=== PATIENT | female | born 1955 | race African-American/Black ===

== ENCOUNTER 2017-08-22 12:02 | Inpatient (IN) | payer OTHER ==
[~2017-08-22] VITALS: Ht 170.2 cm; Wt 103.4 kg
[~2017-08-22 12:02] MED LIST: ADVIL200 M3 PO; ALEVE220 MG PO; BENTYL 20 MG TA20 M1 PO; CATAPRES0.1 MG PO; DOXYCYCLINE 10100 MG PO; HUMALOG MI100 UNIT/1 SUBQ; IBUPROFEN 600600 M1 PO; MEDROL4 MG PO; NAPROSYN500 MG PO; NOHOMEMEDICATIONS; NORCO 5-325 TA1 EACH PO; NORFLEX100 MG PO; ONDANSETRON HCL4 M2 PO; OXYCODONE HCL 55 MG PO; OXYCODONE-ACET1 EACH PO; PRILOSEC40 MG PO; VALIUM2 MG PO; XANAX 0.5 MG0.5 MG PO; ZOFRAN ODT4 MG PO
[2017-08-22 12:10] VITALS: BP 193/111
[2017-08-22 12:58] LABS: URINE BILIRUBIN NEGATIVE (Negative); URINE BLOOD NEGATIVE (Negative); URINE CLARITY CLEAR; URINE COLOR YELLOW; URINE GLUCOSE-RANDOM* TRACE (Negative); URINE KETONES NEGATIVE (Negative); URINE LEUKOCYTES-REFLEX NEGATIVE (Negative); URINE NITRITE-REFLEX NEGATIVE (Negative); URINE PROTEIN (DIPSTICK) TRACE (Negative); URINE SPECIFIC GRAVITY >= 1.030 (1.005-1.035)
[2017-08-22 13:08] LABS: ABSOLUTE NEUTROPHILS 6.4 thou/uL (1.4-8.2); BASOPHILS 0.7 % (0.0-2.0); EOSINOPHILS 0.4 % (0.0-3.0); HEMATOCRIT 37.2 % (37.0-47.0); HEMOGLOBIN 12.2 gm/dL (12.0-15.0); LYMPHOCYTES 16.9 % (24.0-44.0); MCH 29.3 pg (26.0-34.0); MCHC 32.7 g/dL (28.0-37.0); MCV 89.6 fL (80.0-100.0); MONOCYTES 5.3 % (1.0-8.0); PLATELET COUNT 199 thou/uL (150-400); POLYS 76.7 % (36.0-66.0); RBC 4.16 mil/uL (4.20-5.00); RDW 14.2 % (10.5-14.5); WBC 8.4 thou/uL (4.0-11.0)
[2017-08-22 13:11] LABS: CALCIUM 9.4 mg/dL (8.5-10.1); POTASSIUM 4.5 mmol/L (3.5-5.1)
[2017-08-22 13:18] LABS: DIRECT BILIRUBIN 0.2 mg/dL (<0.1-0.3); MAGNESIUM 1.9 mg/dL (1.8-2.4); TOTAL BILIRUBIN 1.3 mg/dL (<0.1-1.0); TOTAL PROTEIN 8.6 g/dL (6.4-8.2)
[2017-08-22 15:26] VITALS: BP 197/104
[2017-08-22] MEDS ORDERED: NOVOLOG100 UNIT/1 SUBQ (15:38)
[2017-08-22 15:48] VITALS: BP 171/121
[2017-08-22 16:25] VITALS: BP 147/90
[2017-08-22 19:30] VITALS: BP 174/104
[2017-08-22] MEDS ORDERED: HUMALOG MI100 UNIT/1 SUBQ (22:09)
[2017-08-23 02:21] VITALS: BP 138/86
[2017-08-23 04:30] VITALS: BP 126/81
[2017-08-23 08:00] VITALS: BP 141/83
[2017-08-23 09:30] VITALS: BP 126/81
[2017-08-23 16:37] VITALS: BP 126/81
== END 2017-08-23 17:16 | disposition home or self-care (01) | DRG 392 ==
LOC: ER 12:02 → EROBS 15:10 → 4E 15:10 → ENTRNSPT 08-23 17:00 → 4E 08-23 17:16
PROVIDERS: Emergency Medicine
DX: R10.9 Unspecified abdominal pain (principal); E11.9 Type 2 diabetes mellitus without complications; K59.00 Constipation, unspecified; D25.9 Leiomyoma of uterus, unspecified; Z85.07 Personal history of malignant neoplasm of pancreas; Z98.891 History of uterine scar from previous surgery; Z90.49 Acquired absence of other specified parts of digestive tract; Z87.891 Personal history of nicotine dependence; Z85.118 Personal history of other malignant neoplasm of bronchus and lung; Z85.05 Personal history of malignant neoplasm of liver; Z79.899 Other long term (current) drug therapy
CPT/HCPCS: 10783

== ENCOUNTER 2017-12-23 05:34 | Emergency (ER) | payer OTHER ==
[~2017-12-23] VITALS: Ht 167.6 cm; Wt 104.8 kg
--- NOTE | ~2017-12-23 | EKG ---
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 : 1955 Requested By: Harlan Foote Order Number: [id number] MD: Edu Modi Measurements Intervals [place] Rate: 99 P: 41 [place]: 178 QRS: 4 QRSD: 87 T: -7 QT: 368 QTc: 473 Interpretive Statements Sinus rhythm Anteroseptal infarct, old Possible inferior infarct Baseline wander in lead(s) V6 Compared to ECG 11/11/2013 06:21:17 Anteroseptal and inferior Q waves are more prominent Electronically Signed On 12-23-2017 8:14:46 CDT by Edu Modi [email or web address] <ELECTRONICALLY SIGNED> By: Edu Modi MD, [facility] 12/23/17 0814 0651 0651 Edu Modi MD, [facility] /EPI
[~2017-12-23 05:34] MED LIST changes: +NOVOLOG100 UNIT/1 SUBQ
[2017-12-23] MEDS ORDERED: ORPHENADRINE C100 M2 (06:00)
[2017-12-23] MEDS ORDERED: OCTREOTIDE100 MCG/2 (06:01)
[2017-12-23] MEDS ORDERED: XGEVA120 MG/1.7 (06:02)
[2017-12-23 06:28] LABS: ABSOLUTE NEUTROPHILS 4.7 thou/uL (1.4-8.2); BASOPHILS 0.3 % (0.0-2.0); EOSINOPHILS 1.3 % (0.0-3.0); HEMATOCRIT 36.2 % (37.0-47.0); HEMOGLOBIN 12.2 gm/dL (12.0-15.0); LYMPHOCYTES 25.4 % (24.0-44.0); MCH 29.9 pg (26.0-34.0); MCHC 33.5 g/dL (28.0-37.0); MONOCYTES 9.7 % (1.0-8.0); PLATELET COUNT 222 thou/uL (150-400); POLYS 63.3 % (36.0-66.0); RBC 4.07 mil/uL (4.20-5.00); RDW 13.7 % (10.5-14.5); WBC 7.4 thou/uL (4.0-11.0)
[2017-12-23 06:28] LABS: URINE BILIRUBIN NEGATIVE (Negative); URINE BLOOD NEGATIVE (Negative); URINE CLARITY CLEAR; URINE COLOR YELLOW; URINE GLUCOSE-RANDOM* NEGATIVE (Negative); URINE KETONES NEGATIVE (Negative); URINE LEUKOCYTES-REFLEX NEGATIVE (Negative); URINE NITRITE-REFLEX NEGATIVE (Negative); URINE PROTEIN (DIPSTICK) NEGATIVE (Negative); URINE SPECIFIC GRAVITY 1.025 (1.005-1.035); URINE UROBILINOGEN 0.2 E.U./dl (0.2-1.0)
[2017-12-23 06:32] LABS: ANION GAP 11 mmol/L (7-16); BUN 9 mg/dL (7-18); CHLORIDE 102 mmol/L (98-107); CO2 22 mmol/L (21-32); GLUCOSE 226 mg/dL (74-106); POTASSIUM 3.6 mmol/L (3.5-5.1); SODIUM 135 mmol/L (136-145)
[2017-12-23 06:41] LABS: ALBUMIN 3.8 g/dL (3.4-5.0); LIPASE 161 U/L (73-393); SGOT 26 U/L (15-37); SGPT 36 U/L (30-65); TOTAL PROTEIN 8.3 g/dL (6.4-8.2); TROPONIN-I <0.06 ng/mL (<0.06)
== END 2017-12-23 08:16 | disposition home or self-care (01) ==
LOC: ER 05:34
PROVIDERS: Emergency Medicine
DX: K59.00 Constipation, unspecified (principal); I10 Essential (primary) hypertension; Z87.19 Personal history of other diseases of the digestive system; Z90.49 Acquired absence of other specified parts of digestive tract; Z85.07 Personal history of malignant neoplasm of pancreas; Z87.891 Personal history of nicotine dependence

== ENCOUNTER 2018-03-27 08:38 | Emergency (ER) | payer OTHER ==
[~2018-03-27] VITALS: Ht 167.6 cm; Wt 95.3 kg
[~2018-03-27 08:38] MED LIST changes: +OCTREOTIDE100 MCG/2; +ORPHENADRINE C100 M2; +XGEVA120 MG/1.7
[2018-03-27] MEDS ORDERED: NOVOLOG FL100 UNIT/M SUBQ (08:55)
[2018-03-27 09:14] LABS: ABSOLUTE NEUTROPHILS 7.1 thou/uL (1.4-8.2); BASOPHILS 0.8 % (0.0-2.0); EOSINOPHILS 0.2 % (0.0-3.0); HEMATOCRIT 35.9 % (37.0-47.0); HEMOGLOBIN 11.8 gm/dL (12.0-15.0); LYMPHOCYTES 15.6 % (24.0-44.0); MCH 28.7 pg (26.0-34.0); MCHC 32.9 g/dL (28.0-37.0); MCV 87.3 fL (80.0-100.0); MONOCYTES 3.9 % (1.0-8.0); PLATELET COUNT 233 thou/uL (150-400); POLYS 79.5 % (36.0-66.0); RBC 4.11 mil/uL (4.20-5.00); RDW 13.8 % (10.5-14.5); WBC 8.9 thou/uL (4.0-11.0)
[2018-03-27 09:17] LABS: URINE BILIRUBIN NEGATIVE (Negative); URINE BLOOD NEGATIVE (Negative); URINE CLARITY CLEAR; URINE COLOR YELLOW; URINE GLUCOSE-RANDOM* TRACE (Negative); URINE KETONES NEGATIVE (Negative); URINE LEUKOCYTES NEGATIVE (Negative); URINE NITRITE NEGATIVE (Negative); URINE PROTEIN (DIPSTICK) TRACE (Negative)
[2018-03-27 09:19] LABS: CALCIUM 9.1 mg/dL (8.5-10.1); CREATININE 1.2 mg/dL (0.6-1.0); POTASSIUM 4.4 mmol/L (3.5-5.1)
[2018-03-27 09:32] LABS: ALBUMIN 3.9 g/dL (3.4-5.0); TOTAL BILIRUBIN 0.9 mg/dL (<0.1-1.0); TOTAL PROTEIN 8.6 g/dL (6.4-8.2)
[2018-03-27] MEDS ORDERED: NORCO 5-325 TA1 EACH PO (11:56)
[2018-03-27] MEDS ORDERED: NAPROSYN500 MG PO (11:56)
[2018-03-27] MEDS ORDERED: CLONIDINE0.1 PO (11:56)
[2018-03-27 12:26] VITALS: BP 163/100
--- NOTE | 2018-03-27 22:03 | EKG ---
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: natalie : 1955 Requested By: Harlan Foote Order Number: [id number] MD: Moreno Ponce Measurements Intervals [place] Rate: 96 P: 48 [place]: 190 QRS: 19 QRSD: 90 T: -5 QT: 358 QTc: 453 Interpretive Statements Sinus rhythm Left atrial enlargement Anteroseptal infarct, old Compared to ECG 12/23/2017 06:51:13 Atrial abnormality now present Myocardial infarct finding still present Electronically Signed On 03-27-2018 22:02:46 [employer] by Moreno Ponce [email or web address] <ELECTRONICALLY SIGNED> By: Moreno Ponce MD 03/27/182 4 4 Moreno Ponce MD /NANO
== END 2018-03-27 12:27 | disposition home or self-care (01) ==
LOC: ER 08:38
PROVIDERS: Emergency Medicine
DX: C78.6 Secondary malignant neoplasm of retroperitoneum and peritoneum (principal); I10 Essential (primary) hypertension; E11.65 Type 2 diabetes mellitus with hyperglycemia; Z90.49 Acquired absence of other specified parts of digestive tract; Z98.890 Other specified postprocedural states; Z87.891 Personal history of nicotine dependence

== ENCOUNTER 2018-06-18 02:10 | Emergency (ER) | payer OTHER ==
[~2018-06-18] VITALS: Ht 167.6 cm; Wt 93.0 kg
[~2018-06-18 02:10] MED LIST changes: +CLONIDINE0.1 PO; +NOVOLOG FL100 UNIT/M SUBQ
[2018-06-18 02:11] VITALS: BP 180/124
[2018-06-18] MEDS ORDERED: AMITIZA 24 MCG24 MC1 PO (02:34)
[2018-06-18 05:05] LABS: ABSOLUTE NEUTROPHILS 8.1 thou/uL (1.4-8.2); BASOPHILS 0.1 % (0.0-2.0); EOSINOPHILS 0.6 % (0.0-3.0); HEMATOCRIT 32.9 % (37.0-47.0); HEMOGLOBIN 10.9 gm/dL (12.0-15.0); LYMPHOCYTES 4.2 % (24.0-44.0); MCH 28.9 pg (26.0-34.0); MCHC 33.1 g/dL (28.0-37.0); MCV 87.2 fL (80.0-100.0); MONOCYTES 1.2 % (1.0-8.0); PLATELET COUNT 184 thou/uL (150-400); POLYS 93.9 % (36.0-66.0); RBC 3.78 mil/uL (4.20-5.00); RDW 14.7 % (10.5-14.5); WBC 8.6 thou/uL (4.0-11.0)
[2018-06-18 05:28] LABS: ANION GAP 12 mmol/L (7-16); BUN 12 mg/dL (7-18); CALCIUM 9.3 mg/dL (8.5-10.1); CHLORIDE 103 mmol/L (98-107); CO2 21 mmol/L (21-32); CREATININE 1.1 mg/dL (0.6-1.0); GLUCOSE 186 mg/dL (74-106); SODIUM 136 mmol/L (136-145)
[2018-06-18 05:29] LABS: POTASSIUM 4.2 mmol/L (3.5-5.1)
[2018-06-18 05:36] LABS: TROPONIN-I <0.06 ng/mL (<0.06)
[2018-06-18 06:41] LABS: ALBUMIN 3.5 g/dL (3.4-5.0); DIRECT BILIRUBIN 0.1 mg/dL (<0.1-0.3); TOTAL BILIRUBIN 0.7 mg/dL (<0.1-1.0)
[2018-06-18 08:35] VITALS: BP 164/102
[2018-06-18 09:56] VITALS: BP 162/93
[2018-06-18 10:00] VITALS: BP 162/93
--- NOTE | 2018-06-18 10:29 | EKG ---
[place] [address] [facility] [place] [address] ELECTROCARDIOGRAM REPORT Name: TRES SIERRA Room #: 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 : 1955 Requested By: Curtis Almaraz Order Number: [id number] MD: Edu Modi Measurements Intervals [place] Rate: 123 P: 39 MD: 155 QRS: 12 QRSD: 88 T: -23 QT: 307 QTc: 439 Interpretive Statements Sinus tachycardia Nonspecific ST and T wave abnormality Compared to ECG 03/27/2018 09:25:35 Nonspecific change in the ST and T-wave segments Electronically Signed On 06-18-2018 10:28:53 CDT by Edu Modi [email or web address] ��������������������������������������������� <ELECTRONICALLY SIGNED> ���������������������������������������� By: Edu Modi MD, [facility] ��������������������������������������������� 06/18/18 1028 2 2 Edu Modi MD, [facility] /EPI
== END 2018-06-18 10:01 | disposition home or self-care (01) ==
LOC: ER 02:10 → EROBS 07:44 → ER 07:44
PROVIDERS: Emergency Medicine
DX: I10 Essential (primary) hypertension (principal); M43.6 Torticollis; R79.1 Abnormal coagulation profile; D61.818 Other pancytopenia; R00.0 Tachycardia, unspecified; E11.9 Type 2 diabetes mellitus without complications; Z85.89 Personal history of malignant neoplasm of other organs and systems; Z98.890 Other specified postprocedural states; Z90.49 Acquired absence of other specified parts of digestive tract; Z85.07 Personal history of malignant neoplasm of pancreas; Z79.4 Long term (current) use of insulin; Z87.891 Personal history of nicotine dependence

== ENCOUNTER 2019-01-03 01:03 | Emergency (ER) | payer OTHER ==
[~2019-01-03] VITALS: Ht 170.2 cm; Wt 88.5 kg
[~2019-01-03 01:03] MED LIST changes: +AMITIZA 24 MCG24 MC1 PO
[2019-01-03 01:48] LABS: HEMATOCRIT 40.4 % (37.0-47.0); HEMOGLOBIN 13.2 gm/dL (12.0-15.0); MCH 28.6 pg (26.0-34.0); MCHC 32.7 g/dL (28.0-37.0); MCV 87.4 fL (80.0-100.0); PLATELET COUNT 237 thou/uL (150-400); RBC 4.63 mil/uL (4.20-5.00); RDW 17.3 % (10.5-14.5); WBC 9.6 thou/uL (4.0-11.0)
[2019-01-03 01:48] LABS: URINE BILIRUBIN NEGATIVE (Negative); URINE BLOOD NEGATIVE (Negative); URINE CLARITY CLEAR; URINE COLOR YELLOW; URINE GLUCOSE-RANDOM* NEGATIVE (Negative); URINE KETONES TRACE (Negative); URINE LEUKOCYTES-REFLEX NEGATIVE (Negative); URINE NITRITE-REFLEX NEGATIVE (Negative); URINE PROTEIN (DIPSTICK) NEGATIVE (Negative)
[2019-01-03 02:28] LABS: ALBUMIN 3.8 g/dL (3.4-5.0); ANION GAP 13 mmol/L (7-16); BUN 10 mg/dL (7-18); CALCIUM 8.9 mg/dL (8.5-10.1); CHLORIDE 99 mmol/L (98-107); CO2 24 mmol/L (21-32); GLUCOSE 113 mg/dL (74-106); LIPASE 75 U/L (73-393); POTASSIUM 3.8 mmol/L (3.5-5.1); SGOT 17 U/L (15-37); SGPT 12 U/L (30-65); SODIUM 136 mmol/L (136-145); TOTAL PROTEIN 8.3 g/dL (6.4-8.2); TROPONIN-I <0.06 ng/mL (<0.06)
[2019-01-03 02:30] LABS: ABSOLUTE NEUTROPHILS 7.8 thou/uL (1.4-8.2)
[2019-01-03 02:32] LABS: ANISOCYTOSIS 1+; PLATELET ESTIMATE NORMAL; POIKILOCYTOSIS 1+; SCHISTOCYTES 1+
[2019-01-03 05:44] VITALS: BP 180/124
--- NOTE | 2019-01-03 08:06 | EKG ---
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 01/03/19 0806 D: 10421 1 Edu Modi MD, [facility] /EPI
== END 2019-01-03 05:48 | disposition home or self-care (01) ==
LOC: ER 01:03
PROVIDERS: Emergency Medicine
DX: R10.11 Right upper quadrant pain (principal); I10 Essential (primary) hypertension; E11.9 Type 2 diabetes mellitus without complications; Z90.49 Acquired absence of other specified parts of digestive tract; Z98.890 Other specified postprocedural states; Z85.07 Personal history of malignant neoplasm of pancreas; Z87.891 Personal history of nicotine dependence

== ENCOUNTER 2020-12-22 08:31 | Inpatient (IN) | payer OTHER ==
[~2020-12-22] VITALS: Ht 167.6 cm; Wt 67.1 kg
--- NOTE | ~2020-12-22 | EEG ---
[facility] [place] [address] ELECTROENCEPHALOGRAM Name: TRES SIERRA Room #: 458-P [facility] IN M.R.#: [id number] Admission: 12/22/20 Attend Phys: Simone Howell MD Discharge: Date of : 57 Report #: [id number] THIS REPORT FOR: //name// DATE OF SERVICE: 12/23/2020 This patient is being evaluated for the possibility of seizure. EEG was done by placing the electrode by standard 10-20 system of electrode placement. Both referential and sequential montages were used for recording. Background activity in this patient's EEG is about 8 Hz and 40 microvolt. The patient went to sleep that is associated with bilateral slowing and vertex sharp waves. Photic stimulation is unremarkable. Throughout the record, no active epileptiform activity was noticed. IMPRESSION: This patient's EEG is somewhat slow. This is a nonspecific finding, but was otherwise unremarkable. Thank you very much for this referral. By: 1600 1622 Giuseppe Natarajan MD /nt
[2020-12-22 08:35] VITALS: BP 118/98
[2020-12-22 09:34] LABS: ABSOLUTE NEUTROPHILS 4.5 thou/uL (1.4-8.2); BASOPHILS 0.5 % (0.0-2.0); EOSINOPHILS 0.4 % (0.0-3.0); HEMATOCRIT 34.8 % (37.0-47.0); HEMOGLOBIN 11.6 gm/dL (12.0-15.0); LYMPHOCYTES 6.5 % (24.0-44.0); MCH 32.3 pg (26.0-34.0); MCHC 33.2 g/dL (28.0-37.0); MCV 97.4 fL (80.0-100.0); MONOCYTES 6.3 % (1.0-8.0); PLATELET COUNT 156 thou/uL (150-400); POLYS 86.3 % (36.0-66.0); RBC 3.58 mil/uL (4.20-5.00); RDW 15.2 % (10.5-14.5); WBC 5.2 thou/uL (4.0-11.0)
[2020-12-22 09:37] LABS: CALCIUM 9.4 mg/dL (8.5-10.1); CREATININE 1.2 mg/dL (0.6-1.0); POTASSIUM 3.4 mmol/L (3.5-5.1)
--- NOTE | 2020-12-22 09:39 | EKG ---
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 : 1955 Requested By: Lewis Barbour Order Number: [id number] MD: Edu Modi Measurements Intervals [place] Rate: 108 P: 77 [place]: 171 QRS: 20 QRSD: 99 T: -12 QT: 334 QTc: 448 Interpretive Statements Sinus tachycardia Atrial premature complex Consider right atrial enlargement Borderline T abnormalities, lateral leads Compared to ECG 01/03/2019 04:22:52 Atrial premature complex(es) now present T-wave abnormality still present Electronically Signed On 12-22-2020 9:39:24 CDT by Edu Modi [email or web address] <ELECTRONICALLY SIGNED> By: Edu Modi MD, [facility] 12/22/20 0939 9 9 Edu Modi MD, [facility] /EPI
[2020-12-22 09:47] LABS: TOTAL BILIRUBIN 0.9 mg/dL (0.2-1.0); TOTAL PROTEIN 8.7 g/dL (6.4-8.2)
[2020-12-22 09:51] LABS: URINE BILIRUBIN NEGATIVE (Negative); URINE BLOOD NEGATIVE (Negative); URINE CLARITY CLEAR; URINE COLOR YELLOW; URINE GLUCOSE-RANDOM* NEGATIVE (Negative); URINE KETONES TRACE (Negative); URINE LEUKOCYTES-REFLEX NEGATIVE (Negative); URINE NITRITE-REFLEX NEGATIVE (Negative); URINE PROTEIN (DIPSTICK) TRACE (Negative)
[2020-12-22 12:45] VITALS: BP 174/92
[2020-12-22 14:24] LABS: CHOLESTEROL 133 mg/dL (<200); HDL CHOLESTEROL 61 mg/dL (>40); LDL CHOLESTEROL 52 mg/dL (<100); TC:HDL 2.2 Ratio (Not establshd); TRIGLYCERIDE 103 mg/dL (<150); VLDL 21 mg/dL (<40)
[2020-12-22 14:43] LABS: SERUM ASSESSMENT Clear
[2020-12-22 15:17] LABS: FOLIC ACID 36.5 ng/mL (8.6-58.9)
[2020-12-22] MEDS ORDERED: ORPHENADRINE C100 M2 PO (18:35)
[2020-12-22] MEDS ORDERED: CAPECITABINE150 MG PO (18:36)
[2020-12-22] MEDS ORDERED: AMITIZA 24 MCG24 MC1 PO (18:36)
[2020-12-22 20:24] LABS: APTT 25.8 Seconds (24.5-32.8); INR 1.05; PROTIME 11.4 Seconds (10.5-12.1)
[2020-12-22 22:19] VITALS: BP 131/75
[2020-12-22 22:44] VITALS: BP 170/98
[2020-12-22 22:56] VITALS: BP 184/108
--- NOTE | 2020-12-23 00:40 | NUR ---
PT ARRIVED IN THE UNIT AT 2256 FROM ED, WITH REPORTED WEAKNESS, ALERT AND ORIENTED X4, LOW BLOOD SUGAR NOTED, PROTOCOL INITIATED, ORIENTED TO ROOM, ADMISSION PACKAGE PRESENTED, REPORTS DISCOMFORT AND PAIN FROM RUQ RADIATING TO THE BACK, PAIN MEDICATION DUE IN AN HOUR, DECLINED TYELENOL, SKIN, DRY AND INTACT ASSIST X1, REPORTS NO URGE TO USE THE RESTROOM, CONTINENT OF B & B, ICED WATER ON THE BEDSIDE TABLE, LUNCH BOX AND APPLE JUICE SERVED. PT COMFORTABLY LYING IN BED, TV ON, REPORTS FEELING SLEEPY, ACTIVE BOWEL SOUNDS X4, IV ON THE RIGHT HAND, FAIR MUSCLE STRENGTH, PERRLA, ABLE TO SIGN CONSENTS WILL CONTINUE TO MONITOR.
[2020-12-23 05:01] VITALS: BP 155/105
[2020-12-23 05:20] LABS: HEMATOCRIT 28.4 % (37.0-47.0); MCH 31.9 pg (26.0-34.0); MCV 96.8 fL (80.0-100.0); RBC 2.94 mil/uL (4.20-5.00); RDW 15.1 % (10.5-14.5)
[2020-12-23 05:22] LABS: HEMOGLOBIN 9.4 gm/dL (12.0-15.0)
[2020-12-23 05:48] LABS: CALCIUM 8.6 mg/dL (8.5-10.1); CREATININE 0.8 mg/dL (0.6-1.0); POTASSIUM 3.2 mmol/L (3.5-5.1)
[2020-12-23 08:58] VITALS: BP 145/102
--- NOTE | 2020-12-23 10:14 | 2DMMODE ---
[facility] [place] [address] 2 D/M-MODE ECHOCARDIOGRAM Name: TRES SIERRA Room #: 458-P [facility] M.R.#: [id number] Admission: 12/22/20 Attend Phys: Simone Howell MD Discharge: Date of : 57 Report #: [id number] THIS REPORT FOR: cc: Eladio Arteaga James A. DO Santiago, Patrick MD [facility] ~ APPROVED REPORT Study performed: 12/23/2020 09:29:49 EXAM: Comprehensive 2D, Doppler, and color-flow Echocardiogram Patient Location: Bedside Room #: [facility] Status: routine BSA: 1.76 HR: 79 bpm BP: 155/105 mmHg Indications TIA vs Seizure. Echo Enhancing Agent Indication: Rule out Shunt Agent(s) / Amount(s) Used: Agitated Saline 7 cc 2D Dimensions RVDd: 33.30 mm IVSd: 16.99 (7-11mm) LVOT Diam: 20.14 (18-24mm) LVDd: 36.44 mm PWd: 11.35 (7-11mm) Ascending Ao: 36.26 (22-36mm) LVDs: 19.64 (25-40mm) Left Atrium: 35.29 (27-40mm) Aortic Root: 33.36 mm Volumes Left Atrial Volume (Systole) Single Plane 4CH: 35.65 mL Single Plane 2CH: 49.95 mL LA ESV Index: 26.00 mL/m2 Aortic Valve AoV Peak Jimmy.: 1.56 m/s AO Peak Gr.: 9.73 mmHg LVOT Max P.59 mmHg LVOT Max V: 1.18 m/s JUAN Vmax: 2.41 cm2 [facility] [place] [address] 2 D/M-MODE ECHOCARDIOGRAM Name: TRES SIERRA Room #: 458-[facility]#: [id number] Admission: 12/22/20 Attend Phys: Simone Howell MD Discharge: Date of : 57 Report #: [id number] Mitral Valve E/A Ratio: 0.5 MV Decel. Time: 219.64 ms MV E Max Jimmy.: 0.51 m/s MV A Jimmy.: 0.96 m/s MV PHT: 63.69 ms IVRT: 128.03 ms Pulmonary Valve PV Peak Jimmy.: 1.23 m/s PV Peak Gr.: 6.07 mmHg Pulmonary Vein P Vein S: 0.58 m/s P Vein D: 0.50 m/s P Vein S/D Ratio: 1.16 Tricuspid Valve RAP Estimate: 5.00 mmHg Left Ventricle The left ventricle is normal size. There is normal LV segmental wall motion. Severe septal hypertrophy is present. Left ventricular systolic function is normal. LVEF is 65-70%. Mild diastolic dysfunction is present (impaired relaxation pattern). Right Ventricle The right ventricle is normal size. The right ventricular systolic function is normal. Atria The left atrium size is normal. No shunting noted with bubble injection. The right atrium size is normal. Aortic Valve Aortic valve leaflets are mildly thickened. No aortic regurgitation is present. There is no aortic valvular stenosis. Mitral Valve Mitral valve leaflets are mildly thickened. Trace to mild mitral regurgitation. No evidence of mitral valve stenosis. Tricuspid Valve The tricuspid valve is normal in structure. There is no tricuspid valve regurgitation noted. Unable to assess PA pressure. [facility] [address] [place] [address] 2 D/M-MODE ECHOCARDIOGRAM Name: TRES SIERRA Room #: 458-P [facility] IN .R.#: [id number] Admission: 12/22/20 Attend Phys: Simone Howell MD Discharge: Date of : 57 Report #: [id number] Pulmonic Valve The pulmonary valve is normal in structure. Mild pulmonic regurgitation. Great Vessels The aortic root is normal in size. The ascending aorta is normal in size. IVC is normal in size and collapses >50% with inspiration. Pericardium There is no pericardial effusion. <Conclusion> Normal left ventricle size with severe septal hypertrophy Ejection fraction 65% Grade 1 diastolic dysfunction Normal right ventricular size/function Normal atrial size Aortic valve mildly sclerotic without stenosis Trace mitral valve insufficiency No tricuspid valve insufficiency No pericardial effusion Normal aortic root size. <ELECTRONICALLY SIGNED> By: Simba Chapa MD, FACC 12/23/20 1013 1013 1013 Simba Chapa MD, FACC /INF
--- NOTE | 2020-12-23 16:33 | NUR ---
PT ADMITTED RELATED TO RIGHT SIDED WEAKNESS. CM REVIEWED CHART AND SPOKE WITH CARE TEAM. CM MET WITH PT AT BEDSIDE THIS DAY. PT APPEARED TO BE A&O X4. CM ROLE INTRODUCED. PT INDICATED SHE LIVES IN A TOWNHOUSE WITH 7 STEPS TO ENTER FROM GARAGE AND 7 STEPS UPSTAIRS. 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 PT INDICATED SHE HAS NO DME. PT INDICATED HER SON ANGELINA SHOULD BE HER CONTACT . CM SPOKE WITH PT ABOUT POSSIBLE SHORT TERM POST ACUTE CARE STAY AND SHE INDICATED SHE WOULD PREFER TO DC HOME WITH HH IF NEEDED UPON DC NOT SKILLED. CM FOLLOWING REGARDING DC PLANNING.
[2020-12-23 20:56] VITALS: BP 157/94
[2020-12-24 01:23] VITALS: BP 152/90
--- NOTE | 2020-12-24 04:09 | NUR ---
patient aox4 makes needs known. patient is up at [facility]. patient ambulates with steady gaits.patient refused insulin d/t bloos sugar being low. patient in bed asleep at this time breathing regular and unlaboured.
[2020-12-24 04:47] VITALS: BP 162/92
[2020-12-24 05:26] LABS: HEMATOCRIT 26.5 % (37.0-47.0); HEMOGLOBIN 8.9 gm/dL (12.0-15.0); MCH 32.5 pg (26.0-34.0); MCHC 33.4 g/dL (28.0-37.0); MCV 97.4 fL (80.0-100.0); RBC 2.73 mil/uL (4.20-5.00); RDW 14.9 % (10.5-14.5); WBC 3.3 thou/uL (4.0-11.0)
[2020-12-24 06:13] LABS: CALCIUM 8.4 mg/dL (8.5-10.1); CREATININE 0.9 mg/dL (0.6-1.0); POTASSIUM 4.1 mmol/L (3.5-5.1)
[2020-12-24 08:00] VITALS: BP 153/95
[2020-12-24] MEDS ORDERED: ADULT LOW DOSE81 MG PO (13:46)
[2020-12-24 14:05] VITALS: BP 153/95
--- NOTE | 2020-12-24 15:36 | NUR ---
Assumed pt care this am, vs stable. Intially refused insuline since she would go super low. Blood sugar check done, diet and medications are tolerated well. POC followed with no signs or verbalizations of distres noted. Dc instructions given, prescriptions sent the her pharmacy. IV removed, pt is now dc.
--- NOTE | 2020-12-27 11:42 | HC ---
[facility] [place] [address] CONSULTATION Name: TRES SIERRA Room #: 458-P [facility] IN M.R.#: [id number] Admission: 12/22/20 Attend Phys: Simone Howell MD Discharge: 12/24/20 Date of : 57 Report #: [id number] THIS REPORT FOR: cc: Eladio Arteaga James A. DO [place], Roxane S. DO DATE OF SERVICE: 12/22/2020 HISTORY OF PRESENT ILLNESS: The patient is a 65-year-old female who states that she has woken up in the middle of the night with right-sided weakness. This occurred on night, going into Wednesday morning and Wednesday night, going into Wednesday morning. Each episode lasted approximately 2 hours. She states along with this episode, she had loss of bladder control. She also admits to sleeping and having dreams. The patient tells me that she is not excessively sleepy during the day. The patient is treated for a neuroendocrine cancer, which she has been told is now spread throughout the abdomen. She is being treated at the [facility]. Apparently, she was given news that the treatment has not improved her cancer and she is very concerned about this. PAST MEDICAL HISTORY: Diabetes and neuroendocrine tumor. PAST SURGICAL HISTORY: section, cholecystectomy. MEDICATIONS AT HOME: Alprazolam 1 mg q. 8 hours p.r.n. anxiety and Novolog insulin 15-20 units subQ t.i.d. ALLERGIES: None. PHYSICAL EXAMINATION: VITAL SIGNS: Temperature 36.6, pulse rate 113, respiratory rate 18, blood pressure 118/98, bedside pulse oximetry 95% on room air. NEUROLOGIC: Cranial nerves II-XII are grossly intact. Motor exam demonstrates symmetrical strength in all 4 extremities with tone and bulk normal. Reflexes are trace throughout. Plantar responses are flexor bilaterally. There is no dysmetria with [id number]. LABORATORY DATA: Hematology: White blood cell count 5.2, hemoglobin 11.6, hematocrit 34.8, MCV 97.4, platelet count 156,000. Urinalysis: Trace protein, trace ketones. Chemistry: Sodium 137, potassium 3.4, chloride 100, carbon dioxide 26, BUN 12, creatinine 1.2, GFR 55, glucose 170, calcium 9.4, total bilirubin 0.9, AST 31, ALT 24, alkaline phosphatase 129. Total protein 8.7, albumin 4. Lipid profile pending. Vitamin D pending. TSH pending[place] [address] CONSULTATION Name: TRES SIERRA Room #: 458-[facility].#: [id number] Admission: 12/22/20 Attend Phys: Simone Howell MD Discharge: 12/24/20 Date of : 57 Report #: [id number] IMAGING: CT angiogram of the head and neck were suboptimal secondary to majority of the contrast in the venous system. There is atherosclerosis of the bilateral carotid bulbs, but no significant carotid stenosis or dissection. There is no large intracranial branch occlusion. No significant intracranial stenosis is identified. IMPRESSION : This patient has had 2 episodes of right-sided weakness occurring at night. I question whether she may have had a seizure. I have ordered an MRI of the head with and without contrast and an electroencephalogram. The patient is also being worked up for stroke and an echocardiogram and lipid profile will also be ordered. I thank you for your kind referral of the patient. As of Wednesday, Dr. Natarajan will be seeing the patient. <ELECTRONICALLY SIGNED> By: China Ibrahim DO 12/27/20 1142 1257 1401 China Ibrahim DO /nt
== END 2020-12-24 15:44 | disposition home health service (06) | DRG 73 ==
LOC: ER 08:31 → EROBS 12:15 → 4W 12:15 → EROBS 12:15 → 4W 22:52
PROVIDERS: Emergency Medicine; Hospitalist; ADMIT Hospitalist; ATTEND Hospitalist
DX: G62.0 Drug-induced polyneuropathy (principal); N17.0 Acute kidney failure with tubular necrosis; C7A.8 Other malignant neuroendocrine tumors; C78.7 Secondary malignant neoplasm of liver and intrahepatic bile duct; M87.88 Other osteonecrosis, other site; E11.9 Type 2 diabetes mellitus without complications; N32.89 Other specified disorders of bladder; M54.50 Low back pain, unspecified; D50.9 Iron deficiency anemia, unspecified; F17.200 Nicotine dependence, unspecified, uncomplicated; F41.9 Anxiety disorder, unspecified; R90.82 White matter disease, unspecified; I10 Essential (primary) hypertension; F51.5 Nightmare disorder; Z20.822 Contact with and (suspected) exposure to COVID-19; Z90.49 Acquired absence of other specified parts of digestive tract; Z98.891 History of uterine scar from previous surgery; Z79.899 Other long term (current) drug therapy; Z85.830 Personal history of malignant neoplasm of bone; Z92.3 Personal history of irradiation
CPT/HCPCS: 10045

== ENCOUNTER 2021-01-29 06:10 | Emergency (ER) | payer OTHER ==
[~2021-01-29] VITALS: Ht 167.6 cm; Wt 67.1 kg
[~2021-01-29 06:10] MED LIST changes: +ADULT LOW DOSE81 MG PO; +CAPECITABINE150 MG PO; +ORPHENADRINE C100 M2 PO
[2021-01-29] MEDS ORDERED: ALPRAZOLAM1 MG PO (06:35)
[2021-01-29] MEDS ORDERED: CELEXA 20 MG TA20 MG PO (06:35)
[2021-01-29] MEDS ORDERED: BASAGLAR K100 UNIT/1 SUBQ (06:35)
[2021-01-29] MEDS ORDERED: HYDROCODON-ACE1 EAC7 PO (06:36)
[2021-01-29 06:58] LABS: ABSOLUTE NEUTROPHILS 3.2 thou/uL (1.4-8.2); BASOPHILS 0.4 % (0.0-2.0); EOSINOPHILS 1.1 % (0.0-3.0); HEMATOCRIT 32.6 % (37.0-47.0); HEMOGLOBIN 10.6 gm/dL (12.0-15.0); MCH 31.6 pg (26.0-34.0); MCHC 32.5 g/dL (28.0-37.0); MCV 97.4 fL (80.0-100.0); MONOCYTES 5.8 % (1.0-8.0); PLATELET COUNT 151 thou/uL (150-400); POLYS 83.7 % (36.0-66.0); RBC 3.35 mil/uL (4.20-5.00); RDW 14.4 % (10.5-14.5); WBC 3.8 thou/uL (4.0-11.0)
[2021-01-29 07:13] LABS: CALCIUM 9.3 mg/dL (8.5-10.1); CREATININE 1.1 mg/dL (0.6-1.0); POTASSIUM 3.7 mmol/L (3.5-5.1)
[2021-01-29 07:25] LABS: ALBUMIN 3.6 g/dL (3.4-5.0); DIRECT BILIRUBIN 0.3 mg/dL (<0.1-0.2); TOTAL BILIRUBIN 1.2 mg/dL (0.2-1.0); TOTAL PROTEIN 7.8 g/dL (6.4-8.2)
[2021-01-29] MEDS ORDERED: PERCOCET 7.5-31 EAC1 PO (09:21)
[2021-01-29 09:53] VITALS: BP 182/106
== END 2021-01-29 09:54 | disposition home or self-care (01) ==
LOC: ER 06:10
PROVIDERS: Student in an Organized Health Care Education/Training Program
DX: R10.31 Right lower quadrant pain (principal); R10.11 Right upper quadrant pain; E11.9 Type 2 diabetes mellitus without complications; I10 Essential (primary) hypertension; Z98.890 Other specified postprocedural states; Z90.49 Acquired absence of other specified parts of digestive tract; Z79.82 Long term (current) use of aspirin; Z79.4 Long term (current) use of insulin; Z79.891 Long term (current) use of opiate analgesic; Z79.899 Other long term (current) drug therapy; Z87.891 Personal history of nicotine dependence

== ENCOUNTER 2021-04-22 13:49 | Emergency (ER) | payer OTHER ==
[~2021-04-22] VITALS: Ht 167.6 cm; Wt 54.9 kg
[~2021-04-22 13:49] MED LIST changes: +ALPRAZOLAM1 MG PO; +BASAGLAR K100 UNIT/1 SUBQ; +CELEXA 20 MG TA20 MG PO; +HYDROCODON-ACE1 EAC7 PO; +PERCOCET 7.5-31 EAC1 PO
[2021-04-22 14:27] LABS: URINE BILIRUBIN NEGATIVE (Negative); URINE BLOOD NEGATIVE (Negative); URINE CLARITY CLEAR; URINE COLOR YELLOW; URINE GLUCOSE-RANDOM* 2+ (Negative); URINE KETONES 1+ (Negative); URINE LEUKOCYTES-REFLEX NEGATIVE (Negative); URINE NITRITE-REFLEX NEGATIVE (Negative); URINE PROTEIN (DIPSTICK) 1+ (Negative); URINE SPECIFIC GRAVITY 1.025 (1.005-1.035)
[2021-04-22 14:30] LABS: ABSOLUTE NEUTROPHILS 6.3 thou/uL (1.4-8.2); BASOPHILS 0.4 % (0.0-2.0); EOSINOPHILS 0.1 % (0.0-3.0); HEMATOCRIT 37.6 % (37.0-47.0); HEMOGLOBIN 12.7 gm/dL (12.0-15.0); LYMPHOCYTES 4.8 % (24.0-44.0); MCH 31.7 pg (26.0-34.0); MCHC 33.7 g/dL (28.0-37.0); MCV 94.1 fL (80.0-100.0); MONOCYTES 12.8 % (1.0-8.0); PLATELET COUNT 186 thou/uL (150-400); POLYS 81.9 % (36.0-66.0); RDW 14.7 % (10.5-14.5); WBC 7.7 thou/uL (4.0-11.0)
[2021-04-22 14:37] LABS: CALCIUM 9.9 mg/dL (8.5-10.1); CREATININE 0.9 mg/dL (0.6-1.0)
[2021-04-22 14:44] LABS: BACTERIA-REFLEX 1-9 Few /HPF (None Seen); CRYSTALS None Seen /LPF (None Seen); HYALINE CASTS 0-3 Few /LPF (None Seen); SQUAMOUS 4-10 Moderate /LPF (0-3); URINE RBC 1-2 Rare /HPF (NONE SEEN); URINE WBC-REFLEX 0-5 Rare /HPF (0-5)
[2021-04-22 14:47] LABS: ALBUMIN 3.5 g/dL (3.4-5.0); TOTAL BILIRUBIN 1.9 mg/dL (0.2-1.0); TOTAL PROTEIN 8.2 g/dL (6.4-8.2)
[2021-04-22 14:49] LABS: POTASSIUM 4.5 mmol/L (3.5-5.1)
--- NOTE | 2021-04-22 14:52 | EKG ---
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 : 1955 Requested By: Carmita Forte Order Number: [id number] MD: Edu Modi Measurements Intervals [place] Rate: 105 P: 89 [place]: 149 QRS: 45 QRSD: 85 T: -53 QT: 374 QTc: 495 Interpretive Statements Sinus tachycardia Consider right atrial enlargement Left ventricular hypertrophy Anterior ST elevation, probably due to LVH Baseline wander in lead(s) I,III,aVL Compared to ECG 12/22/2020 08:40:[address] and T wave abnormality Electronically Signed On 04-22-2021 14:52:43 CATHETER BUILDER by Edu Modi [email or web address] <ELECTRONICALLY SIGNED> By: Edu Modi MD, [facility] 04/22/21 1452 1419 1419 Edu Modi MD, [facility] /EPI
[2021-04-22] MEDS ORDERED: LISINOPRIL20 MG PO (17:48)
[2021-04-22 18:00] VITALS: BP 164/119
== END 2021-04-22 18:01 | disposition home or self-care (01) ==
LOC: ER 13:49
PROVIDERS: Nurse Practitioner
DX: I10 Essential (primary) hypertension (principal); Z20.822 Contact with and (suspected) exposure to COVID-19; E11.9 Type 2 diabetes mellitus without complications; Z98.890 Other specified postprocedural states; Z90.49 Acquired absence of other specified parts of digestive tract; Z79.82 Long term (current) use of aspirin; Z79.4 Long term (current) use of insulin; Z79.899 Other long term (current) drug therapy; Z87.891 Personal history of nicotine dependence

== ENCOUNTER → 2021-05-13 | Outpatient (CLI) | payer OTHER ==
[~2021-05-13] MED LIST changes: +LISINOPRIL20 MG PO
[2021-05-13 11:46] LABS: ABSOLUTE NEUTROPHILS 3.2 thou/uL (1.4-8.2); BASOPHILS 0.9 % (0.0-2.0); EOSINOPHILS 1.8 % (0.0-3.0); HEMATOCRIT 29.8 % (37.0-47.0); LYMPHOCYTES 9.5 % (24.0-44.0); MCH 32.2 pg (26.0-34.0); MCHC 33.6 g/dL (28.0-37.0); MCV 95.9 fL (80.0-100.0); MONOCYTES 11.6 % (1.0-8.0); PLATELET COUNT 193 thou/uL (150-400); POLYS 76.2 % (36.0-66.0); RDW 14.8 % (10.5-14.5); URINE BLOOD NEGATIVE (Negative); URINE CLARITY CLEAR; URINE COLOR YELLOW; URINE GLUCOSE-RANDOM* NEGATIVE (Negative); URINE KETONES NEGATIVE (Negative); URINE LEUKOCYTES-REFLEX NEGATIVE (Negative); URINE PROTEIN (DIPSTICK) NEGATIVE (Negative); URINE SPECIFIC GRAVITY 1.025 (1.005-1.035); URINE UROBILINOGEN 0.2 E.U./dl (0.2-1.0); WBC 4.2 thou/uL (4.0-11.0)
[2021-05-13 11:49] LABS: ICTOTEST (BILI CONFIRMATORY) Negative (Negative); URINE BILIRUBIN NEGATIVE (Negative); URINE NITRITE-REFLEX POSITIVE (Negative)
[2021-05-13 12:05] LABS: BACTERIA-REFLEX None Seen /HPF (None Seen); CASTS None Seen /LPF (None Seen); CRYSTALS None Seen /LPF (None Seen); MUCUS 0-3 Light strn/LPF (None Seen); SQUAMOUS 0-3 Few /LPF (0-3); URINE RBC None Seen /HPF (NONE SEEN); URINE WBC-REFLEX 0-5 Rare /HPF (0-5)
[2021-05-13 12:07] LABS: ALBUMIN 3.1 g/dL (3.4-5.0); CALCIUM 8.6 mg/dL (8.5-10.1); CREATININE 0.9 mg/dL (0.6-1.0); MAGNESIUM 1.9 mg/dL (1.8-2.4); POTASSIUM 4.3 mmol/L (3.5-5.1); TOTAL BILIRUBIN 1.3 mg/dL (0.2-1.0)
[2021-05-13 12:11] LABS: APTT 25.9 Seconds (24.5-32.8); INR 1.08; PROTIME 11.7 Seconds (10.5-12.1)
== END ==
LOC: LAB 10:24
PROVIDERS: ATTEND Nurse Practitioner Family
DX: C7A.8 Other malignant neuroendocrine tumors (principal); C79.51 Secondary malignant neoplasm of bone; C77.1 Secondary and unspecified malignant neoplasm of intrathoracic lymph nodes; D50.9 Iron deficiency anemia, unspecified